=== PATIENT | male | born 1980 | race Caucasian/White ===

== ENCOUNTER 2020-08-05 21:14 | Emergency (ER) | payer OTHER ==
[~2020-08-05 21:14] MED LIST: CLONIDINE HCL0.2 MG PO; FERROUS SULFAT325 MG PO; GABAPENTIN800 MG PO; HYDROXYZINE PAM25 MG PO; HYGROTON TAB 2525 MG PO; LEVAQUIN750 MG PO; LISINOPRIL40 MG PO; TIZANIDINE HCL4 MG PO
[2020-08-05 21:46] LABS: HEMOGLOBIN 13.7 gm/dl (14.0-17.5); RED BLOOD COUNT 4.39 M/UL (4.20-5.50); WHITE BLOOD COUNT 8.6 K/UL (4.5-11.0)
[2020-08-05 22:02] LABS: BUN/CREATININE RATIO 11 (0-10)
== END 2020-08-06 00:26 | disposition home or self-care (01) ==
LOC: ER1 21:14
PROVIDERS: Family Medicine
DX: R56.9 Unspecified convulsions (principal); S80.812A Abrasion, left lower leg, initial encounter; S80.811A Abrasion, right lower leg, initial encounter; I10 Essential (primary) hypertension; G89.29 Other chronic pain; Z88.5 Allergy status to narcotic agent; Z79.899 Other long term (current) drug therapy; X58.XXXA Exposure to other specified factors, initial encounter
CPT/HCPCS: 70450; 72125; 73590; 80053; 82550; 82553; 83735; 83874; 84484; 85025; 93005; 96374; 99285; J7030

== ENCOUNTER → 2021-09-27 | Outpatient (CLI) | payer OTHER | LOC: KOH-I 13:35 | DX: M25.511 Pain in right shoulder (principal); M79.621 Pain in right upper arm; M25.521 Pain in right elbow; M79.631 Pain in right forearm; M25.531 Pain in right wrist | CPT/HCPCS: 73030; 73060; 73080; 73090; 73110 ==

== ENCOUNTER → 2021-12-16 | Outpatient (CLI) | payer OTHER | LOC: KOH-I 13:03 | DX: M54.50 Low back pain, unspecified (principal); M54.2 Cervicalgia; M54.6 Pain in thoracic spine; R05.9 Cough, unspecified; M47.816 Spondylosis without myelopathy or radiculopathy, lumbar region | CPT/HCPCS: 71046; 72040; 72070; 72100; 73562 ==